=== PATIENT | male | born 2000 | race Caucasian/White ===

== ENCOUNTER 2023-03-29 11:50 | Emergency (ER) | payer SELFPAY ==
[2023-03-29 11:58] VITALS: BP 127/76; PULSE 70; RESP 16; TEMP 36.7; O2SAT 99; BMI 23.1
--- NOTE | 2023-03-29 12:25 | XRR_ITS ---
PROCEDURE INFORMATION: Exam: XR Lumbosacral Spine Exam date and time: 03/29/2023 12:53 PM Age: 22 years old Clinical indication: Low back pain; Additional info: Lbp since lifting a tire TECHNIQUE: Imaging protocol: Radiologic exam of the lumbosacral spine. Views: 2 or 3 views. COMPARISON: No relevant prior studies available. FINDINGS: Bones/joints: 2-3 mm retrolisthesis of L5 on S1. Otherwise, unremarkable lumbar spine Soft tissues: Unremarkable. XR/XR lumbar spine 2-3V* [id number] IMPRESSION: As above.
--- NOTE | 2023-03-29 13:39 | ED_ITS ---
HPI - Back Pain/Injury General: Chief Complaint: Back Pain/Injury Stated Complaint: low back pain Time Seen by Provider: 03/29/23 13:21 Source: patient Mode of arrival: ambulatory Limitations: no limitations History of Present Illness: Patient is a 22-year-old male presents to ED today with complaint of lower back pain. 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 This is a workers comp injury. Patient states he has trouble ambulating secondary to the pain. He states pain does not radiate into his buttocks or down into his lower extremities. He has no abdominal pain. MD elicited complaint: back pain Pertinent past history: recent trauma Onset (ago): hour(s) Timing: constant Severity: moderate Similar Symptoms Previously: No Location: right lower back Radiation: none Exacerbating factors: walking Relieving factors: none Context: while lifting Associated symptoms: Reports no associated symptoms; Deny abdominal pain, nausea, syncope or vomiting Treatments prior to arrival: NSAIDS Work related injury: Yes Review of Systems Card: Denies: chest pain, lightheadedness, syncope or pre-syncope Resp: Denies: dyspnea GI: Denies: abdominal pain, nausea or vomiting Musc: Reports: back pain; Denies: neck pain, extremity pain, extremity swelling, joint pain or joint swelling Skin/Breast: Denies: rash Neuro: Denies: headache(s), numbness in extremities, weakness in extremities, sensory changes or dizziness Physical Exam Const: COMMON NORMALS: no acute distress, average body habitus, patient oriented x3, no limitations, healthy appearing, alert and well nourished Chest: COMMONS NORMALS: normal inspection of the chest and normal palpation of entire chest wall Resp: COMMON NORMALS: normal respiratory effort and clear to auscultation bilaterally AUSCULTATION: clear to auscultation bilaterally Cardio: COMMON NORMALS: regular rate and regular rhythm RATE: regular rate RHYTHM: regular rhythm GI: COMMON NORMALS: Normal to inspection, nondistended, normoactive bowel sounds present, Soft to palpation, non-tender, No hepatosplenomegaly present and no masses PALPATION: Yes Soft to palpation and Yes No hepatosplenomegaly present Back/Pelvis: COMMON NORMALS: thoracic and lumbar spine normal to inspection, no thoracic nor lumbar tenderness and thoraco-lumbar ROM normal LUMBAR SPINE/LOWER BACK: Yes lumbar ROM normal, No lumbar spinal tenderness, Yes para spinal muscle tenderness and Yes straight leg raise negative bilaterally PELVIS: Yes buttocks normal and No sciatic notch tenderness SACROILIAC JOINTS: Yes SI joints normal SACRUM: no tenderness COCCYX: no tenderness BACK IMAGE (MALE): 1. TTP Extremity: COMMON NORMALS: normal to inspection and full ROM GENERAL: Yes normal exam except as noted Neuro: COMMON NORMALS: patient oriented x3, moves all extremities, no focal motor deficits and no sensory deficits noted SENSORIUM/ORIENTATION: Yes alert MOTOR EXAM: 5/5 motor strength present throughout Course Vital Signs: Vital signs: Vital Signs Temperature 98.0 F 03/29/23 11:58 Pulse Rate 70 03/29/23 11:58 Respiratory Rate 16 03/29/23 11:58 Blood Pressure 127/76 03/29/23 11:58 Pulse Oximetry 99 03/29/23 11:58 Oxygen Delivery Me thod Room Air 03/29/23 11:58 MDM - Back Pain/Injury Medical Decision Making X-ray showing L5-S1 retrolisthesis. Most likely this is incidental and unrelated to his recent lifting injury. He is directly tender to palpation over the right lumbar paraspinal musculature. He will be treated with muscle relaxers, steroids, anti-inflammatories. Patient is requesting 2 days off work as he states he is not able to lift and with his job he is required to lift tires. He will follow-up with Worker's Comp. as directed. Labs Radiology Impressions Lumbar Spine X-Ray 03/29/23 12:25 IMPRESSION: As above. All radiology interpretation(s) finalized by discharge Discharge Plan Discharge Patient Disposition: Home Clinical Impression: Strain of lumbar region Condition: Stable Prescriptions: New cyclobenzaprine 10 mg tablet 10 mg PO TID Qty: 14 0RF Medrol (Joshua) 4 mg tablets,dose pack See Rx Instructions .ROUTE .COMPLEX Qty: 21 0RF Rx Instructions: orally per package directions ibuprofen 600 mg tablet 600 mg PO Q8H PRN (Reason: pain) Qty: 14 0RF Discharge Orders: Discharge ED (Routine); Ordered 03/29/23 Ordered By: Dalia Roman Activity Restrictions/Additional Instructions: Please follow up with Worker's Comp as directed. Coding Level of Care Code ED [employer] for [facility] [place]
== END 2023-03-29 13:58 | disposition home or self-care (01) ==
PROVIDERS: Emergency Provider Physician Assistant
DX: S39.012A Strain of muscle, fascia and tendon of lower back, initial encounter (principal); X50.0XXA Overexertion from strenuous movement or load, initial encounter; Y99.0 Civilian activity done for income or pay
CPT/HCPCS: 72100; 99283